=== PATIENT | female | born 1990 | race Caucasian/White ===

== ENCOUNTER 2018-09-18 16:59 | Emergency (ER) | payer OTHER ==
--- NOTE | 2018-09-18 17:24 | ER Document Report ---
ED Medical Screen (RME) - General Chief Complaint: Nausea/Vomiting Stated Complaint: FEVER Time Seen by Provider: 09/18/18 17:15 Notes: Patient is a 28-year-old female that presents to the emergency department for chief complaint of fever, cough, nausea and vomiting. Patient states that her symptoms started last night and became progressively worse, has generalized body aches as well. Denies urinary symptoms, or having any diarrhea feeling members have had similar symptoms. She also works as a nurse in the hospital. ROS: Other than noted above, the 12 point review of systems was reviewed with the patient and were negative, all pertinent findings are included in the HPI. PHYSICAL EXAMINATION: Vital signs reviewed. GENERAL: Patient appears uncomfortable HEAD: Atraumatic, normocephalic. EYES: Pupils equal round extraocular movements intact, conjunctiva are normal. ENT: Nares patent NECK: Normal range of motion CV: Heart rate tachycardic, regular rhythm LUNGS: No respiratory distress Musculoskeletal: Normal range of motion NEUROLOGICAL: Normal speech PSYCH: Normal mood, normal affect. MDM: Patient seen and examined for rapid initial assessment. Vital signs reviewed. A comprehensive ED assessment and evaluation of the patient, analysis of test results and completion of the medical decision making process will be conducted by additional ED providers. *Note is created using voice recognition software and may contain spelling, syntax or grammatical errors. TRAVEL OUTSIDE OF THE [place] IN LAST 30 DAYS: No - Related Data Allergies/Adverse Reactions: No Known Allergies Allergy (Unverified 09/18/18 17:01) Past Medical History - Social History Chew tobacco use (# tins/day): No Drug Abuse: None Renal/ Medical History: Denies: Hx Peritoneal Dialysis Physical Exam - Vital signs Vitals: Temp Pulse Resp BP Pulse Ox 98.8 F 128 H 14 119/81 98 09/18/18 17:06 09/18/18 17:06 09/18/18 17:06 09/18/18 17:06 09/18/18 17:06 Course - Vital Signs Vital signs: Temp Pulse Resp BP Pulse Ox 98.8 F 128 H 14 119/81 98 09/18/18 17:06 09/18/18 17:06 09/18/18 17:06 09/18/18 17:06 09/18/18 17:06
[2018-09-18] MEDS ORDERED: RINGERS SOLUTION,LACTATED 1,000 ML IV ONE ×2 (17:25)
[2018-09-18] MEDS ORDERED: PROMETHAZINE HCL INJ 25 MG/1 ML VIAL IV ONE (17:25)
[2018-09-18] MEDS ORDERED: KETOROLAC TROMETHAMINE INJ/PF 30 MG/1 ML SDV IV ONE (17:25)
[2018-09-18 17:56] LABS: A TYPE INFLUENZA AG NEGATIVE (NEGATIVE); B INFLUENZA AG NEGATIVE (NEGATIVE)
--- NOTE | 2018-09-18 18:51 | ER Document Report ---
ED General - General Chief Complaint: Nausea/Vomiting Stated Complaint: FEVER Time Seen by Provider: 09/18/18 17:15 Mode of Arrival: Ambulatory Information source: Patient Notes: 28-year-old female presents emergency department with complaints of fever, rhinorrhea, cough, sore throat, headache, myalgias, nausea, vomiting. Patient states that the headache and myalgias started on Saturday. The nausea and vomiting started on Saturday. Patient states that her child has similar symptoms. She thought that she just had a cold or the flu and has been taking [id number] cold flu medication and Mucinex. Patient states that she is also been taking Zofran for the nausea and vomiting. She states that she is unable to keep anything down and the Zofran is not helping with her symptoms. She denies any abdominal pain, diarrhea, constipation, dysuria, hematuria, vaginal bleeding, vaginal discharge. She states her last menstrual period was earlier this month. TRAVEL OUTSIDE OF THE [place] IN LAST 30 DAYS: No - HPI Onset: Other - 3 days prior to arrival. Onset/Duration: Persistent Severity: Mild Associated symptoms: Body/muscle aches, Chills, Nonproductive cough, Headache, Nausea, Vomiting, Rhinnorhea, Sore throat Exacerbated by: Denies Relieved by: Denies Similar symptoms previously: No Recently seen / treated by doctor: No - Related Data Allergies/Adverse Reactions: No Known Allergies Allergy (Unverified 09/18/18 17:01) Past Medical History - General Information source: Patient - Social History Smoking Status: Never Smoker Chew tobacco use (# tins/day): No Drug Abuse: None Family History: Reviewed & Not Pertinent Patient has suicidal ideation: No Patient has homicidal ideation: No Renal/ Medical History: Denies: Hx Peritoneal Dialysis Review of Systems - Review of Systems Constitutional: Chills, Fever, Malaise EENT: Nose discharge Cardiovascular: No symptoms reported Respiratory: Cough Gastrointestinal: Nausea, Vomiting Genitourinary: No symptoms reported Female Genitourinary: No symptoms reported Musculoskeletal: No symptoms reported Skin: No symptoms reported Hematologic/Lymphatic: No symptoms reported Neurological/Psychological: No symptoms reported -: Yes All other systems reviewed and negative Physical Exam - Vital signs Vitals: Temp Pulse Resp BP Pulse Ox 98.8 F 128 H 14 119/81 98 09/18/18 17:06 09/18/18 17:06 09/18/18 17:06 09/18/18 17:06 09/18/18 17:06 - Notes Notes: PHYSICAL EXAMINATION: GENERAL: Ill appearing. HEAD: Atraumatic, normocephalic. EYES: Pupils equal round and reactive to light, extraocular movements intact, conjunctiva are normal. ENT: Nares patent, oropharynx clear without exudates. Moist mucous membranes. NECK: Normal range of motion, supple without lymphadenopathy LUNGS: Breath sounds clear to auscultation bilaterally and equal. No wheezes rales or rhonchi. HEART: Tachycardic. S1S2. ABDOMEN: Soft, nontender, nondistended abdomen. No guarding, no rebound. Female : deferred Musculoskeletal: Normal range of motion, no pitting or edema. No cyanosis. NEUROLOGICAL: Cranial nerves grossly intact. Normal speech, normal gait. Normal sensory, motor exams PSYCH: Normal mood, normal affect. SKIN: Warm, Dry, normal turgor, no rashes or lesions noted. Course - Re-evaluation Re-evalutation: 09/18/18 20:52 Flu and strep are negative. Urinalysis is within normal limits. Patient received 2 L of fluid while in the emergency department. On reevaluation, patient states that she is feeling better. Vitals improved. Her nausea and vomiting have resolved. Patient feels comfortable with discharge home. I instructed the patient to follow-up with her primary care physician this week, to take the medication prescribed as directed, and to return for any worsening symptoms. Patient is agreeable with plan of care. 09/18/18 20:53 - Vital Signs Vital signs: Temp Pulse Resp BP Pulse Ox 98.2 F 107 H 20 115/67 100 09/18/18 20:14 09/18/18 20:14 09/18/18 20:14 09/18/18 20:14 09/18/18 20:14 Discharge - Discharge Clinical Impression: Viral illness Condition: Good Disposition: HOME, SELF-CARE Instructions: Viral Syndrome ([facility]) Prescriptions: Promethazine HCl [Phenergan 25 mg Tablet] 1 tab PO Q6H PRN #15 tablet PRN Reason: Referrals: KENNETH KELSEY MD [ACTIVE STAFF] - Follow up as needed
[2018-09-18 20:03] LABS: APPEARANCE,URINE CLEAR; BILIRUBIN,URINE NEGATIVE (NEGATIVE); COLOR,URINE STRAW; GLUCOSE, URINE NEGATIVE (NEGATIVE); KETONES,URINE NEGATIVE (NEGATIVE); LEUKOCYTE ESTERASE,URINE NEGATIVE (NEGATIVE); NITRITE,URINE NEGATIVE (NEGATIVE); PROTEIN,URINE NEGATIVE (NEGATIVE); URINE SPECIFIC GRAVITY 1.003; UROBILINOGEN,URINE NEGATIVE mg/dL (<2.0)
[2018-09-18 22:19] VITALS: BP 114/72
== END 2018-09-18 22:16 | disposition home or self-care (01) ==
LOC: ER 16:59
DX: B34.9 Viral infection, unspecified (principal); R11.2 Nausea with vomiting, unspecified; R50.9 Fever, unspecified; R51 Headache; M79.10 Myalgia, unspecified site; J34.89 Other specified disorders of nose and nasal sinuses; R05 Cough; J02.9 Acute pharyngitis, unspecified; R53.81 Other malaise; R00.0 Tachycardia, unspecified
CPT/HCPCS: 99284; 96361; 96374; 96375; 87070; 87880; 81025; 81001; 87804; J1885; J2550; J7120

== ENCOUNTER 2019-05-10 22:00 | Emergency (ER) | payer OTHER ==
[2019-05-10 22:27] VITALS: BP 130/72
--- NOTE | 2019-05-10 22:54 | ER Document Report ---
ED General - General Stated Complaint: FOOT INJURY Time Seen by Provider: 05/10/19 22:54 TRAVEL OUTSIDE OF THE [place] IN LAST 30 DAYS: No - HPI Patient complains to provider of: foot injury Notes: 28 y/o presenting to ED for evaluation of puncture wound to left foot she notes a screw went through her shoe and into her foot she is able to walk but notes that her foot feels "full" no drainage bleeding controlled tdap is up todate - Related Data Allergies/Adverse Reactions: No Known Allergies Allergy (Unverified 09/18/18 17:01) Past Medical History - Social History Smoking Status: Unknown if Ever Smoked Family History: Reviewed & Not Pertinent Renal/ Medical History: Denies: Hx Peritoneal Dialysis Review of Systems - Review of Systems Constitutional: No symptoms reported EENT: No symptoms reported Cardiovascular: No symptoms reported Respiratory: No symptoms reported Gastrointestinal: No symptoms reported Genitourinary: No symptoms reported Female Genitourinary: No symptoms reported Musculoskeletal: No symptoms reported Skin: Other - puncture wound Hematologic/Lymphatic: No symptoms reported Neurological/Psychological: No symptoms reported Physical Exam - Vital signs Vitals: Temp Pulse Resp BP Pulse Ox 98.5 F 84 18 130/72 H 99 05/10/19 22:26 05/10/19 22:26 05/10/19 22:26 05/10/19 22:26 05/10/19 22:26 Interpretation: Normal - General General appearance: Appears well, Alert - HEENT Head: Normocephalic, Atraumatic Eyes: Normal Pupils: PERRL - Respiratory Respiratory status: No respiratory distress Chest status: Nontender Breath sounds: Normal Chest palpation: Normal - Cardiovascular Rhythm: Regular Heart sounds: Normal auscultation Murmur: No - Abdominal Inspection: Normal Distension: No distension Bowel sounds: Normal Tenderness: Nontender Organomegaly: No organomegaly - Back Back: Normal, Nontender - Extremities General upper extremity: Normal inspection, Nontender, Normal color, Normal ROM, Normal temperature General lower extremity: Normal inspection, Nontender, Normal color, Normal ROM, Normal temperature, Normal weight bearing. No: Shelly's sign - Neurological Neuro grossly intact: Yes Cognition: Normal Orientation: AAOx4 Irving Coma Scale Eye Opening: Spontaneous Irving Coma Scale Verbal: Oriented Irving Coma Scale Motor: Obeys Commands Irving Coma Scale Total: 15 Speech: Normal Motor strength normal: LUE, RUE, LLE, RLE Sensory: Normal - Psychological Associated symptoms: Normal affect, Normal mood - Skin Skin Temperature: Warm Skin Moisture: Dry Skin Color: Normal Notes: puncture type wound to bottom of left foot. no drainage or bleeding. cap refill and pulse normal in left foot Course - Re-evaluation Re-evalutation: 05/10/19 23:34 XR w/o foreign body or fracture tdap is up to date will prophylax w/ clinda - Vital Signs Vital signs: Temp Pulse Resp BP Pulse Ox 98.5 F 84 18 130/72 H 99 05/10/19 22:26 05/10/19 22:26 05/10/19 22:26 05/10/19 22:26 05/10/19 22:26 - Diagnostic Test Radiology reviewed: Image reviewed, Reports reviewed Discharge - Discharge Clinical Impression: Elevated blood pressure reading Puncture wound of foot, left Qualifiers: Encounter type: initial encounter Qualified Code(s): S91.332A - Puncture wound without foreign body, left foot, initial encounter Condition: Stable Disposition: HOME, SELF-CARE Additional Instructions: take medicine as directed return to the ED with worsening follow up with primary doctor as an outpatient Prescriptions: Clindamycin HCl [Cleocin 150 mg Capsule] 300 mg PO Q6 #60 capsule Forms: Elevated Blood Pressure
[2019-05-10] MEDS ORDERED: CLINDAMYCIN HCL 150 MG CAPSULE PO ONE (23:01)
--- NOTE | 2019-05-10 23:27 | RADIOLOGY REPORT (SQ) ---
EXAM DESCRIPTION: XR FOOT COMPLETED DATE/TME: 05/10/2019 00:00 CLINICAL HISTORY: 28 years Female, puncture wound COMPARISON: None. Findings: Known soft tissue injury; no radioopaque foreign body. Bones, joints, and soft tissues of the LEFT XR FOOT 3 VIEWS appear otherwise intact. IMPRESSION: Soft tissue injury; else, no acute findings.
== END 2019-05-10 23:40 | disposition home or self-care (01) ==
LOC: ER 22:00
DX: S91.332A Puncture wound without foreign body, left foot, initial encounter (principal); W26.8XXA Contact with other sharp object(s), not elsewhere classified, initial encounter; Y93.01 Activity, walking, marching and hiking; Y92.89 Other specified places as the place of occurrence of the external cause; R03.0 Elevated blood-pressure reading, without diagnosis of hypertension
CPT/HCPCS: 99283

== ENCOUNTER → 2019-06-14 | Outpatient (CLI) | payer OTHER ==
[2019-06-15 08:11] LABS: C DIFFICILE GDH POSITIVE (NEGATIVE)
== END ==
LOC: LAB 17:59
PROVIDERS: ATTEND Nurse Practitioner Family
DX: R19.7 Diarrhea, unspecified (principal)
CPT/HCPCS: 87045; 87077; 87205; 87324; 87449; 87493

== ENCOUNTER → 2019-06-15 | Outpatient (CLI) | payer OTHER ==
[2019-06-15 13:20] LABS: ABSOLUTE LYMPHOCYTES (AUTO) 1.7 10^3/uL (0.5-4.7); ABSOLUTE MONOCYTES (AUTO) 0.8 10^3/uL (0.1-1.4); BASOPHILS % (AUTO) 0.8 % (0-2); EOSINOPHILS % (AUTO) 0.8 % (0-6); HEMATOCRIT 44.3 % (36.0-47.0); HEMOGLOBIN 15.4 g/dL (12.0-15.5); MEAN CORPUSCULAR HEMOGLOBIN 31.8 pg (27.0-33.4); MEAN CORPUSCULAR HGB CONC 34.9 g/dL (32.0-36.0); MEAN CORPUSCULAR VOLUME 91 fl (80-97); MONOCYTES % (AUTO) 13.5 % (3-13); PLATELET COUNT 200 10^3/uL (150-450); RED BLOOD COUNT 4.86 10^6/uL (3.72-5.28); SEGMENTED NEUTROPHILS % (AUTO) 53.9 % (42-78); TOTAL CELLS COUNTED % (AUTO) 100 %; WHITE BLOOD COUNT 5.6 10^3/uL (4.0-10.5)
[2019-06-15 14:09] LABS: ALBUMIN 4.3 g/dL (3.5-5.0); ALKALINE PHOSPHATASE 76 U/L (38-126); ANION GAP 14 (5-19); ASPARTATE AMINO TRANSFERASE 22 U/L (14-36); BILIRUBIN,DIRECT 0.2 mg/dL (0.0-0.4); BILIRUBIN,TOTAL 0.4 mg/dL (0.2-1.3); BLOOD UREA NITROGEN 12 mg/dL (7-20); CALCIUM 9.4 mg/dL (8.4-10.2); CARBON DIOXIDE 22 mmol/L (22-30); CHLORIDE 103 mmol/L (98-107); GLUCOSE 66 mg/dL (75-110); POTASSIUM 3.5 mmol/L (3.6-5.0); TOTAL PROTEIN 7.8 g/dL (6.3-8.2)
== END ==
LOC: OD 12:14
PROVIDERS: ATTEND Nurse Practitioner Family
DX: R19.7 Diarrhea, unspecified (principal)
CPT/HCPCS: 36415; 80053; 85025